=== PATIENT | female | born 1970 | race Two or more races ===

== ENCOUNTER 2020-09-07 23:03 | Emergency (ER) | payer MEDICAID, OTHER ==
[~2020-09-07] VITALS: Ht 165.1 cm; Wt 78.0 kg
[2020-09-07 23:28] VITALS: BP 131/73
[2020-09-08 00:33] LABS: APPEARANCE,URINE CLEAR (CLEAR); BILIRUBIN,URINE NEGATIVE (NEGATIVE); BLOOD, URINE TRACE-I (NEGATIVE); COLOR,URINE YELLOW (YELLOW); LEUKOCYTE ESTERASE ,URINE NEGATIVE (NEGATIVE); NITRITE, URINE NEGATIVE (NEGATIVE); UGLUCOSE NEGATIVE (NEGATIVE)
[2020-09-08 00:54] LABS: RBC,URINE 0-5 /HPF (0-5)
[2020-09-08 00:55] LABS: WBC,URINE 0-5 /HPF (0-5)
[2020-09-08] MEDS ORDERED: cefTRIAXone 1,000 MG in LIDOCAINE MPF 1% 2.1 ML IM ONE (01:45)
[2020-09-08] MEDS ORDERED: IBUP-2218 PO (01:48)
[2020-09-08] MEDS ORDERED: CEPH-588 PO (01:48)
[2020-09-08] MEDS ORDERED: KETOROLAC 60 MG/2 ML VIAL IM ONE ×3 (01:50→02:10)
[2020-09-08] MEDS ORDERED: cefTRIAXone 1,000 MG VIAL ONE (02:29)
[2020-09-08] MEDS ORDERED: LIDOCAINE MPF 1% 5 ML ONE (02:29)
[2020-09-08 02:59] VITALS: BP 135/90
== END 2020-09-08 03:10 | disposition home or self-care (01) ==
LOC: MED 23:03
DX: N39.0 Urinary tract infection, site not specified (principal); R10.30 Lower abdominal pain, unspecified; Z79.899 Other long term (current) drug therapy
CPT/HCPCS: 74176; 81001; 81025; 96372; 99284; J0696; J1885; J2001